=== PATIENT | female | born 1970 | race Caucasian/White ===

== ENCOUNTER 2017-11-03 18:20 | Emergency (ER) | payer OTHER ==
[~2017-11-03] VITALS: Ht 165.1 cm; Wt 96.7 kg
[2017-11-03 18:23] VITALS: TEMP 36.7; Ht 165.1 cm; Wt 96.7 kg
[2017-11-03] MEDS ORDERED: KETOROLAC TROMETHAMINE 30 MG/ML VIAL IV STA (18:36)
[2017-11-03 19:03] LABS: BASO % 0.5 %; BASO ABS # 0.03 K/uL (0-0.2); EOS % 2.2 %; EOS ABS # 0.13 K/uL (0-0.5); HEMOGLOBIN 14.3 g/dL (12.0-16.0); IG# 0.01 K/uL (0.00-0.02); LYMPH ABS # 0.78 K/uL (1.2-3.4); MEAN CELL VOLUME 92.1 fL (80-100); MEAN CORPUSCULAR HEMOGLOBIN 30.6 pg (25-34); MEAN CORPUSCULAR HGB CONC 33.3 g/dl (32-36); MEAN PLATELET VOLUME 9.9 fL (7.4-10.4); MONO % 11.1 %; MONO ABS # 0.67 K/uL (0.11-0.59); PLATELET COUNT 264 K/uL (130-400); RED CELL DISTRIBUTION WIDTH CV 13.5 % (11.5-14.5); RED CELL DISTRIBUTION WIDTH SD 45.5 fL (36.4-46.3); WHITE BLOOD COUNT 6.02 K/uL (4.8-10.8)
[2017-11-03 19:17] LABS: ALBUMIN 3.5 gm/dl (3.4-5.0); ALT/SGPT 31 U/L (12-78); BLOOD UREA NITROGEN 8 mg/dl (7-18); CALCIUM 8.8 mg/dl (8.5-10.1); CARBON DIOXIDE 27 mmol/L (21-32); CREATININE 0.84 mg/dl (0.60-1.20); GLUCOSE 106 mg/dl (70-99); LIPASE 210 U/L (73-393); POTASSIUM 3.7 mmol/L (3.5-5.1); SODIUM 138 mmol/L (136-145)
[2017-11-03 19:20] LABS: ALKALINE PHOSPHATASE 90 U/L (45-117); AST/SGOT 23 U/L (15-37); TOTAL PROTEIN 7.5 gm/dl (6.4-8.2)
--- NOTE | 2017-11-03 19:22 | DIAGNOSTIC IMAGING REPORT ---
ABD/PELVIS WITHOUT FOR STONE HISTORY: 47 years-old Female low back and flank pain acute low back and bilateral flank pain. Acute urinary tract infection with fever COMPARISON: None available TECHNIQUE: Multiple axial CT images of the abdomen and pelvis were obtained without contrast. A dose lowering technique was used consistent with the principals of EMILIO. FINDINGS: Bilateral lung bases appear clear. There is no pneumatosis or pneumoperitoneum identified. Imaged inferior cardiac chambers are unremarkable. Contracted gallbladder. The liver, spleen, pancreas and adrenal glands are within normal limits. Indeterminate benign-appearing calcifications noted posterior to the right hepatic lobe, 3 mm. The kidneys, ureters and urinary bladder are within normal limits. Uterus appears unremarkable. There is a 4.3 x 3.2 cm low attenuating lesion of the right adnexum seen on image 278 series 3 suggesting ovarian cyst. The aorta is normal in course and caliber. No bulky adenopathy. There is no bowel obstruction or focal bowel wall thickening identified. Moderate stool volume of the rectosigmoid. 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 Soft tissues are unremarkable. Bones appear intact. IMPRESSION: 1. No acute intra-abdominal or intrapelvic abnormality identified, specifically no renal calculi or obstructive uropathy. 2. Postoperative changes of the colon without evidence of bowel obstruction or focal bowel wall thickening. 3. 4.3 cm cystic lesion of the right right lower quadrant suggests suggests ovarian cyst. This could be further evaluated with pelvic ultrasound if clinically indicated. The above report was generated using voice recognition software. It may contain grammatical, syntax or spelling errors. Electronically signed by: Johnson Oneal M.D. 11/03/2017 7:20 PM Dictated Date/Time: 11/03/2017 7:09 PM
[2017-11-03] MEDS ORDERED: AMOX500C3 PO (20:06)
[2017-11-03] MEDS ORDERED: CETI10TA84 PO (20:06)
[2017-11-03] MEDS ORDERED: FLUT1INH7 INH (20:06)
[2017-11-03] MEDS ORDERED: GABA-1218 PO (20:06)
[2017-11-03] MEDS ORDERED: LEVO125T72 PO (20:06)
[2017-11-03] MEDS ORDERED: IODI1TAB PO (20:06)
[2017-11-03] MEDS ORDERED: CITA40TA12 PO (20:06)
[2017-11-03] MEDS ORDERED: MONT1TAB5 PO (20:06)
[2017-11-03] MEDS ORDERED: WARF-281 PO (20:06)
[2017-11-03] MEDS ORDERED: BACL10TA PO (20:06)
[2017-11-03] MEDS ORDERED: RIZA10TA18 PO (20:06)
[2017-11-03] MEDS ORDERED: CALC625T35 PO (20:06)
[2017-11-03] MEDS ORDERED: RIBO100T9 PO (20:06)
[2017-11-03] MEDS ORDERED: MAGN1CAP2 PO (20:06)
[2017-11-03] MEDS ORDERED: PRVHFAIN INH (20:06)
[2017-11-03] MEDS ORDERED: WARF4TAB44 PO (20:06)
--- NOTE | 2017-11-03 20:24 | EMERGENCY ROOM VISIT NOTE ---
History Report prepared by Kiah: Min Cordero Under the Supervision of: Carlos BenitezO. First contact with patient: 18:26 Chief Complaint: URINARY SYMPTOMS Stated Complaint: UTI,SEVERE BACK AND HIP PAIN,SORES ON VAGINA History of Present Illness The patient is a 47 year old female who presents to the Emergency Room with complaints of worsening urinary symptoms that started a week ago. She states that she was seen by a doctor, diagnosed with a UTI, and was started on Amoxicillin. The patient notes that today was her 3rd day of taking the Amoxicillin. She says that the bilateral lower back pain has been worsening however, and her lower abdominal pain has been worsening as well. The patient notes that the pain in her abdomen feels like a pressure. She says that last night, she noticed that she had a sore on the lips of her vaginal area, which was concerning for her. Source of History: patient Onset: A week ago Position: other (global) Symptom Intensity: diagnosed with UTI Quality: other (urinary symptoms) Timing: worsening Associated Symptoms: + abdominal pain (low), + back pain (low) Note: Associated symptoms: Sore on lips of vaginal area. Review of Systems See HPI for pertinent positives & negatives. A total of 10 systems reviewed and were otherwise negative. Past Medical & Surgical Medical Problems: (1) No chronic problems Family History No pertinent family history Social History Smoking Status: Never Smoker Drug Use: none Marital Status: Housing Status: lives with family Current/Historical Medications Scheduled Amoxicillin (Amoxil), 500 MG PO TID Baclofen (Lioresal), 10 MG PO TID Calcium Polycarbophil (Fiber), 625 MG PO DAILY Cetirizine (Zyrtec), 10 MG PO DAILY Citalopram Hydrobromide (Celexa), 40 MG PO DAILY Fluticasone Furoate-Vilanterol (Breo Ellipta 200-25 Mcg/INH), 1 PUFF INH DAILY Gabapentin (Neurontin), 300 MG PO TID Iodine (Kelp) (Kelp), 150 MCG PO DAILY Levothyroxine Sodium (Synthroid), 125 MCG PO DAILY Magnesium Oxide (Mg Supplement (Magnesium), 400 MG PO BID Montelukast Sodium (Montelukast Sodium), 10 MG PO DAILY Riboflavin (Vitamin B-2), 100 MG PO DAILY Warfarin Sodium (Warfarin Sodium), 9 MG PO 3XWK Warfarin Sodium (Warfarin Sodium), 10 MG PO 4XWK Scheduled PRN Albuterol (Ventolin Hfa), 2 PUFFS INH UD PRN for SOB/Wheezing Rizatriptan Benzoate (Maxalt), 10 MG PO UD PRN for Migraine Allergies Coded Allergies: Morphine (Verified Allergy, Intermediate, Rash, 11/03/17) Valproic Acid (Verified Allergy, Intermediate, Rash, 11/03/17) Latex (Verified Allergy, Unknown, Skin irritation, 11/03/17) Physical Exam Vital Signs Date Time Temp Pulse Resp B/P (MAP) Pulse Ox O2 Delivery O2 Flow Rate FiO2 11/03/17 18:23 36.7 108 18 147/74 98 Room Air Physical Exam CONSTITUTIONAL/VITAL SIGNS: Reviewed / noted above. GENERAL: Non-toxic in appearance. INTEGUMENTARY: Warm, dry, and Moro. HEAD: Normocephalic. EYES: without scleral icterus or trauma. ENT/OROPHARYNX: clear and moist. LYMPHADENOPATHY/NECK: Is supple without lymphadenopathy or meningismus. RESPIRATORY: Lungs clear and equal. CARDIOVASCULAR: Regular rate and rhythm. GI/ABDOMEN: Soft. Mild tenderness to palpation of bilateral inguinal regions. No organomegaly or pulsatile mass. No rebound or guarding. Normal bowel sounds. EXTREMITIES: Warm and well perfused. BACK: No CVA tenderness. NEUROLOGICAL: Intact without focal deficits. PSYCHIATRIC: normal affect. MUSCULOSKELETAL: Normally developed with good muscle tone. Medical Decision & Procedures ER Provider Diagnostic Interpretation: CT results as stated below per my review and radiologist interpretation: ABD/PELVIS WITHOUT FOR STONE HISTORY: 47 years-old Female low back and flank pain acute low back and bilateral flank pain. Acute urinary tract infection with fever COMPARISON: None available TECHNIQUE: Multiple axial CT images of the abdomen and pelvis were obtained without contrast. A dose lowering technique was used consistent with the principals of ALARA. FINDINGS: Bilateral lung bases appear clear. There is no pneumatosis or pneumoperitoneum identified. Imaged inferior cardiac chambers are unremarkable. Contracted gallbladder. The liver, spleen, pancreas and adrenal glands are within normal limits. Indeterminate benign-appearing calcifications noted posterior to the right hepatic lobe, 3 mm. The kidneys, ureters and urinary bladder are within normal limits. Uterus appears unremarkable. There is a 4.3 x 3.2 cm low attenuating lesion of the right adnexum seen on image 278 series 3 suggesting ovarian cyst. The aorta is normal in course and caliber. No bulky adenopathy. There is no bowel obstruction or focal bowel wall thickening identified. Moderate stool volume of the rectosigmoid. 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 Soft tissues are unremarkable. Bones appear intact. IMPRESSION: 1. No acute intra-abdominal or intrapelvic abnormality identified, specifically no renal calculi or obstructive uropathy. 2. Postoperative changes of the colon without evidence of bowel obstruction or focal bowel wall thickening. 3. 4.3 cm cystic lesion of the right right lower quadrant suggests suggests ovarian cyst. This could be further evaluated with pelvic ultrasound if clinically indicated. The above report was generated using voice recognition software. It may contain grammatical, syntax or spelling errors. Electronically signed by: Johnson Oneal M.D. 11/03/2017 7:20 PM Dictated Date/Time: 11/03/2017 7:09 PM Laboratory Results 11/03/17 18:45 Red Blood Count 4.67, Mean Corpuscular Volume 92.1, Mean Corpuscular Hemoglobin 30.6, Mean Corpuscular Hemoglobin Concent 33.3, Mean Platelet Volume 9.9, Neutrophils (%) (Auto) 73.0, Lymphocytes (%) (Auto) 13.0, Monocytes (%) (Auto) 11.1, Eosinophils (%) (Auto) 2.2, Basophils (%) (Auto) 0.5, Neutrophils # (Auto ) 4.40, Lymphocytes # (Auto) 0.78, Monocytes # (Auto) 0.67, Eosinophils # (Auto ) 0.13, Basophils # (Auto) 0.03 11/03/17 18:45 Test 11/03/17 18:45 11/03/17 18:58 11/03/17 20:00 White Blood Count 6.02 K/uL (4.8-10.8) Red Blood Count 4.67 M/uL (4.2-5.4) Hemoglobin 14.3 g/dL (12.0-16.0) Hematocrit 43.0 % (37-47) Mean Corpuscular Volume 92.1 fL (80-100) Mean Corpuscular Hemoglobin 30.6 pg (25-34) Mean Corpuscular Hemoglobin Concent 33.3 g/dl (32-36) Platelet Count 264 K/uL (130-400) Mean Platelet Volume 9.9 fL (7.4-10.4) Neutrophils (%) (Auto) 73.0 % Lymphocytes (%) (Auto) 13.0 % Monocytes (%) (Auto) 11.1 % Eosinophils (%) (Auto) 2.2 % Basophils (%) (Auto) 0.5 % Neutrophils # (Auto) 4.40 K/uL (1.4-6.5) Lymphocytes # (Auto) 0.78 K/uL (1.2-3.4) Monocytes # (Auto) 0.67 K/uL (0.11-0.59) Eosinophils # (Auto) 0.13 K/uL (0-0.5) Basophils # (Auto) 0.03 K/uL (0-0.2) RDW Standard Deviation 45.5 fL (36.4-46.3) RDW Coefficient of Variation 13.5 % (11.5-14.5) Immature Granulocyte % (Auto) 0.2 % Immature Granulocyte # (Auto) 0.01 K/uL (0.00-0.02) Anion Gap 6.0 mmol/L (3-11) Est Creatinine Clear Calc Drug Dose 96.3 ml/min Estimated GFR () 96.6 Estimated GFR (Non- 83.3 BUN/Creatinine Ratio 8.9 (10-20) Calcium Level 8.8 mg/dl (8.5-10.1) Total Bilirubin 0.2 mg/dl (0.2-1) Direct Bilirubin < 0.1 mg/dl (0-0.2) Aspartate Amino Transf (AST/SGOT) 23 U/L (15-37) Alanine Aminotransferase (ALT/SGPT) 31 U/L (12-78) Alkaline Phosphatase 90 U/L (45-117) Total Protein 7.5 gm/dl (6.4-8.2) Albumin 3.5 gm/dl (3.4-5.0) Lipase 210 U/L (73-393) Urine Color DK YELLOW Urine Appearance CLEAR (CLEAR) Urine pH 5.0 (4.5-7.5) Urine Specific [place] 1.019 (1.000-1.030) Urine Protein NEG (NEG) Urine Glucose (UA) TRACE (NEG) Urine Ketones NEG (NEG) Urine Occult Blood NEG (NEG) Urine Nitrite NEG (NEG) Urine Bilirubin NEG (NEG) Urine Urobilinogen NEG (NEG) Urine Leukocyte Esterase TRACE (NEG) Urine WBC (Auto) 5-10 /hpf (0-5) Urine RBC (Auto) 0-4 /hpf (0-4) Urine Hyaline Casts (Auto) 1-5 /lpf (0-5) Urine Epithelial Cells (Auto) 10-20 /lpf (0-5) Urine Bacteria (Auto) NEG (NEG) Urine Test NEG (NEG) Laboratory results as stated above per my review. Medications Administered Medications (Trade) Dose Ordered Sig/Rick Route Start Time Stop Time Status Last Admin Dose Admin Ketorolac Tromethamine (Toradol Inj) 30 mg NOW STAT IV 11/03/17 18:36 11/03/17 18:40 DC 11/03/17 18:50 30 MG ED Course 1826: Previous medical records were reviewed. The patient was evaluated in room C11B. A complete history and physical examination was performed. 1835: Ordered Toradol Inj 30 mg IV. 2024: On reevaluation, the patient is resting comfortably. I discussed the results and findings with the patient. She verbalized agreement of the treatment plan. She was discharged home. Medical Decision Differential considered: pancreatitis, hepatitis, or acute cholecystitis, AAA, UTI, pyelonephritis, kidney stones, appendicitis, diverticulitis, shingles, bowel obstruction mesenteric ischemia, intussusception, hernia, ovarian torsion , ruptured ovarian cyst, ectopic , . This is a 47-year-old female who presents to the ED with a chief complaint of low back pain as well as a sore on her right labia. The patient states that she was treated with amoxicillin for UTI over the past 3 days. This was a prescription called in and she did not have a urine sample performed. The patient denies any other symptoms. She denies any abnormal vaginal discharge. Reports a monogamous relationship with her . She denies any changes in her bowel habits. Her physical exam as noted above. Pelvic exam revealed a small lesion on the right labia that was not draining. This was a circular ulceration about 0.5 cm in diameter. Her pelvic exam did not reveal any cervical motion tenderness and there was no significant abnormal discharge. Abdomen soft and nontender. CT scan of the abdomen revealed a 4.3 cm cyst, felt to be consistent with an ovarian cyst on the right. Otherwise no acute abnormality. The patient has had colon surgery in the past and this was evident on the CT scan as well. CBC reveals a normal white blood cell count and normal hemoglobin. PRP was normal, test was negative and a urine did not show infection. Pelvic ultrasound been sent. The patient was treated with Toradol IV. She is felt to be stable for discharge. She reports that she has multiple specialists in [place] for her multiple prior issues. She states that she has been to [facility] in the past for issues and states that she does not like that hospital. The patient was advised we will contact her with culture results if positive. She was advised to follow-up with her etcher enameling and her specialist if her symptoms persist per Medication Reconcilliation Current Medication List: was personally reviewed by me Blood Pressure Screening Patient's blood pressure: Elevated blood pressure Blood pressure disposition: Elevated BP felt to be situational Impression Primary Impression: Low back pain Additional Impression: Skin ulcer of labia majora Scribe Attestation The scribe's documentation has been prepared under my direction and personally reviewed by me in its entirety. I confirm that the note above accurately reflects all work, treatment, procedures, and medical decision making performed by me. Departure Information Dispostion Home / Self-Care Referrals No Doctor, Assigned (PCP) Patient Instructions My [facility] Additional Instructions Follow-up with your etcher enameling and PCP if symptoms persist. Take Tylenol or Motrin as needed for pain. Follow-up with your doctor for further care and evaluation in 1-2 days. Return to the emergency department for worsening or new symptoms or any concerns. You have been examined and treated today on an emergency basis only. This is not a substitute for, or an effort to provide, complete comprehensive medical care. It is impossible to recognize and treat all injuries or illnesses in a single emergency department visit. It is therefore important that you follow up closely with your doctor. Call as soon as possible for an appointment. Problem Qualifiers
[2017-11-03 20:25] VITALS: BP 141/86; PULSE 76; O2SAT 98
--- NOTE | 2017-11-06 17:17 | Pharmacy Progress Note ---
ED Pharmacist Culture FollowUp Date of Service: Nov 06, 2017. The patient was already taking amoxicillin (day 3) for UTI upon presentation to the ED. Discussed with Dr. Olivas who saw the patient and he does not feel that any further treatment is necessary at this time for the rare jordin albicans in the genital culture.
== END 2017-11-03 20:59 | disposition home or self-care (01) ==
LOC: C.EDB 18:22 → C.EDC 20:59
DX: M54.5 Low back pain (principal); L98.499 Non-pressure chronic ulcer of skin of other sites with unspecified severity; N39.0 Urinary tract infection, site not specified; Z79.01 Long term (current) use of anticoagulants; Z79.899 Other long term (current) drug therapy; Z88.5 Allergy status to narcotic agent; Z91.040 Latex allergy status; N83.201 Unspecified ovarian cyst, right side

== ENCOUNTER → 2017-11-10 | Outpatient (CLI) | payer OTHER ==
[~2017-11-10] MED LIST: AMOX500C3 PO; BACL10TA PO; CALC625T35 PO; CETI10TA84 PO; CITA40TA12 PO; FLUT1INH7 INH; GABA-1218 PO; IODI1TAB PO; LEVO125T72 PO; MAGN1CAP2 PO; MONT1TAB5 PO; PRVHFAIN INH; RIBO100T9 PO; RIZA10TA18 PO; WARF-281 PO; WARF4TAB44 PO
[2017-11-14 11:04] LABS: HERPES SIMPLEX VIRUS CULT NOT ISOLATED (NOT ISOLATED)
== END | disposition home or self-care (01) ==
LOC: C.LABSPEC 14:38
PROVIDERS: ATTEND Obstetrics & Gynecology
DX: L98.9 Disorder of the skin and subcutaneous tissue, unspecified (principal)